=== PATIENT | female | born 1990 | race Two or more races ===

== ENCOUNTER → 2021-07-19 | Day surgery (SDC) | payer MEDICAID ==
[2021-07-13 10:43] LABS: Urine Bacteria NONE SEEN /hpf (None Seen); Urine Blood Negative /uL (Negative); Urine Mucus FEW (None Seen); Urine Specific Gravity 1.035 (1.001-1.035); Urine WBC 32 /hpf (0 - 5)
[2021-07-13 10:45] LABS: Basophils # (auto) 0 10 ^3/uL (0-0.2); Basophils % (auto) 0.2 % (0.0-2.0); Eosinophils # (auto) 0.1 10 ^3/uL (0-0.8); Eosinophils % (auto) 2.3 % (0.0-7.0); Hematocrit 42.6 % (36.0-46.0); Hemoglobin 14.3 g/dL (12.2-16.2); Lymphocytes # (auto) 1.1 10 ^3/uL (0.4-5.4); Lymphocytes % (auto) 30.6 % (10.0-50.0); Mean Corpuscular Hemoglobin 29.4 pg (28.0-32.0); Mean Corpuscular Hgb Conc. 33.5 g/dL (32.0-36.0); Mean Corpuscular Volume 87.7 fL (80.0-100.0); Monocytes # (auto) 0.4 10 ^3/uL (0-1.3); Monocytes % (auto) 10.4 % (0.0-12.0); Neutrophils # (auto) 2.1 10 ^3/uL (1.6-8.6); Neutrophils % (auto) 56.5 % (37.0-80.0); Nucleated Red Blood Cells % 0.1 %; Red Blood Cells 4.86 10^6/uL (4.0-5.20); Red Cell Distribution Width 13.4 % (11.8-14.3); White Blood Cell 3.7 10^3/uL (4.4-10.8)
[2021-07-13 11:01] LABS: INR 1.1 (0.9-1.15); Partial Thromboplastin Time 29.5 sec (23.6-33.0)
[2021-07-13 11:43] LABS: Potassium 4.3 mmol/L (3.5-5.1)
[2021-07-13 11:48] LABS: Albumin 3.5 g/dL (3.4-5.0); BUN/Creatinine Ratio 24.2; Bilirubin, Total 0.2 mg/dL (0.2-1.0); Calcium 8.8 mg/dL (8.5-10.1); Total Protein 7.3 g/dL (6.4-8.2)
[~2021-07-19] VITALS: Ht 167.6 cm; Wt 75.7 kg
[~2021-07-19] MED LIST: ALPR0.5T7 PO; ASCO500T11 PO; B-COTAB59 OR; BUPIVACAINE HCL 50 ML ONE; CALC-179 OR; EPINEPHrine HCL 1 MG/1 ML AMP ONE; HYDR1TAB97 PO; HYDROmorphone HCL 2 MG/ML VL IV PRN; LIDOCAINE 2% (LOCAL ANESTH.) PF 5ml SDV ONE; MIDAZOLAM HCL 2MG/2ML 2ml VIAL (1mg/ml) ONE; MISC1LOZ3 MT; MULT-552 PO; ONDANSETRON HCL 4 MG/2 ML VIAL IV PRN; ONDANSETRON HCL 4 MG/2 ML VIAL ONE; PROPOFOL 10 MG/ML 20 ML IV ONE; ROCURONIUM 10MG/ML 10ML VIAL IV ONE; [UNRECOGNIZED DRUG - CODE] OR; ceFAZolin 1GM/50ML 100 ML IV ONE; ePHEDrine SULFATE 50 MG/ML AMP ONE; fentaNYL CITRATE 100 MCG/2 ML VL ONE
[2021-07-19 11:45] VITALS: BP 111/61
== END | disposition home or self-care (01) ==
LOC: SUR 07:18
PROVIDERS: ATTEND Orthopaedic Surgery Sports Medicine
DX: M22.42 Chondromalacia patellae, left knee (principal); M17.12 Unilateral primary osteoarthritis, left knee; F41.9 Anxiety disorder, unspecified; Z90.89 Acquired absence of other organs; Z98.84 Bariatric surgery status; Z20.822 Contact with and (suspected) exposure to COVID-19; Z88.0 Allergy status to penicillin; Z88.8 Allergy status to other drugs, medicaments and biological substances
CPT/HCPCS: 29873; 29879; 36415; 80053; 81001; 81025; 84702; 85025; 85610; 85730; C1713; C1762; J0171; J0690; J2001; J2250; J2405; J2704; J3010; J3490; U0003